=== PATIENT | female | born 1975 | race Two or more races ===

== ENCOUNTER 2023-12-26 12:00 | Emergency (ER) | payer SELFPAY ==
[~2023-12-26] VITALS: Ht 160 cm; Wt 81.0 kg
[2023-12-26 12:05] VITALS: O2SAT 100
[2023-12-26] MEDS ORDERED: AZIT500T8 MT (12:42)
[2023-12-26] MEDS: DEXAMETHASONE 10 MG/ML VIAL PO ONE (13:59)
[2023-12-26] MEDS: AZITHROMYCIN 500 MG TABLET PO ONE (13:59)
[2023-12-26] MEDS ORDERED: AZITHROMYCIN 500 MG TABLET PO ONE ×4 (15:15)
[2023-12-26 16:00] VITALS: BP 138/67; PULSE 78; RESP 18; TEMP 98.5
== END 2023-12-26 16:00 | disposition home or self-care (01) ==
LOC: ER 12:00
DX: J02.9 Acute pharyngitis, unspecified (principal); Z88.1 Allergy status to other antibiotic agents; Z98.890 Other specified postprocedural states
CPT/HCPCS: 99283; 87430; J1100